=== PATIENT | female | born 1925 | race Caucasian/White ===

== ENCOUNTER → 2016-06-23 | Outpatient (CLI) | payer OTHER, BC ==
[~2016-06-23] MED LIST: AMLO2.5T PO; ASPI81TA21 PO; CALCTAB7 PO; CHOL100027 PO; FLAX SEED; GABA1CAP5 PO; HYDR12.56 PO; LOSA1TAB38 PO; MEGA RED; MULT-190 PO; MULTTAB58 PO; NRN/300 PO; NTRGSL/4 UT; PRLSR20 PO; SERT50TA PO; SIMV20TA2 PO; SYN50 PO; ZNTT/150 PO
== END | disposition home or self-care (01) ==
LOC: C.LABSPEC 16:45
PROVIDERS: ATTEND Obstetrics & Gynecology
DX: N81.10 Cystocele, unspecified (principal)

== ENCOUNTER 2016-10-16 12:53 | Emergency (ER) | payer OTHER, BC ==
[~2016-10-16] VITALS: Ht 157.5 cm; Wt 69.8 kg
[~2016-10-16 12:53] MED LIST changes: -AMLO2.5T PO; -GABA1CAP5 PO; -HYDR12.56 PO; -NTRGSL/4 UT; -PRLSR20 PO; -SIMV20TA2 PO; -SYN50 PO; -ZNTT/150 PO
[2016-10-16 13:03] VITALS: TEMP 36.5; Ht 157.5 cm; Wt 69.8 kg
[2016-10-16 14:13] LABS: BASO % 0.2 %; BASO ABS # 0.02 K/uL (0-0.2); COMPLETE YES; EOS % 1.6 %; IG% 0.1 %; LYMPH % 21.7 %; LYMPH ABS # 1.75 K/uL (1.2-3.4); MEAN CELL VOLUME 97.6 fL (80-100); MEAN CORPUSCULAR HEMOGLOBIN 32.2 pg (25-34); MEAN PLATELET VOLUME 10.6 fL (7.4-10.4); MONO % 9.4 %; PLATELET COUNT 191 K/uL (130-400); WHITE BLOOD COUNT 8.08 K/uL (4.8-10.8)
[2016-10-16 14:22] LABS: BUN/CREATININE RATIO 23.6 (10-20); CALCIUM 8.7 mg/dl (8.5-10.1); CREATININE 0.86 mg/dl (0.60-1.20); POTASSIUM 4.4 mmol/L (3.5-5.1)
[2016-10-16 14:25] LABS: ALB/GLOB RATIO 0.9 (0.9-2)
[2016-10-16 14:44] VITALS: O2SAT 95
[2016-10-16] MEDS ORDERED: HYDR12.56 PO (15:00)
[2016-10-16] MEDS ORDERED: ZNTT/150 PO (15:00)
[2016-10-16] MEDS ORDERED: SYN50 PO (15:00)
[2016-10-16] MEDS ORDERED: NTRGSL/4 UT (15:00)
[2016-10-16] MEDS ORDERED: SIMV20TA2 PO (15:00)
[2016-10-16] MEDS ORDERED: SERT50TA PO (15:00)
[2016-10-16] MEDS ORDERED: AMLO2.5T PO (15:00)
[2016-10-16] MEDS ORDERED: GABA1CAP5 PO (15:00)
[2016-10-16] MEDS ORDERED: PRLSR20 PO (15:00)
[2016-10-16] MEDS ORDERED: SODIUM CHLORIDE 0.9% 1000ML 1,000 ML IV STA (15:17)
[2016-10-16] MEDS ORDERED: SODIUM CHLORIDE 0.9% 250ML 250 ML IV STA (15:17)
--- NOTE | 2016-10-16 15:51 | DIAGNOSTIC IMAGING REPORT ---
HEAD CT NONCONTRAST CT DOSE: 537.48 mGy.cm HISTORY: Mental status change AMS TECHNIQUE: Multiaxial CT images of the head were performed without the use of intravenous contrast. Comparison: 05/24/2009 Findings: The paranasal sinuses and mastoid air cells are clear. Mild chronic small vessel change of the periventricular deep white matter regions. Several punctate old periventricular infarct. No acute intracranial hemorrhage. No midline shift. Impression: No acute intracranial abnormality. Chronic and age-related change. Electronically signed by: Cedric Murillo M.D. 10/16/2016 3:50 PM Dictated Date/Time: 10/16/2016 3:45 PM
--- NOTE | 2016-10-16 15:56 | EMERGENCY ROOM VISIT NOTE ---
History Report prepared by Abiel: Radha Martínez Under the Supervision of: Dr. Lacey Hooper M.D. First contact with patient: 15:07 Chief Complaint: DEHYDRATION Stated Complaint: DIZZY, LIGHTHEADED, CONFUSED, DIARRHEA Nursing Triage Summary: pt reports diarrhea for the past few weeks causes pain in her stomach states yesterday she got up and was dizzy pt also reports she was cleaning a house with her daughter concerned about any infection she may have acquired daughter states there is a family history of C Diff History of Present Illness The patient is an 89 year old female who presents to the Emergency Room with complaints of intermittent diarrhea over the last three months. The patient reports that she has not had any hematochezia or melena. She states that her diarrhea subsides for a short amount of time, but always returns. The patient states that she felt fine last evening, but states that this morning she began experiencing diarrhea again. The patient states that she additionally notes abdominal pain. The patient reports a history of diverticulitis and stomach ulcers, and states that she is on a baby aspirin. The patient's daughter reports that the patient has been cleaning out her sister's house recently, which had multiple bacterial build ups. She states that the patient has been confused and additionally voices concern of dehydration. Source of History: patient Onset: last three months Position: other (global) Quality: other (diarrhea) Timing: intermittent Associated Symptoms: + abdominal pain, No melena, No hematochezia Note: Associated Symptoms: possible dehydration, confusion Review of Systems See HPI for pertinent positives & negatives. A total of 10 systems reviewed and were otherwise negative. Past Medical & Surgical Medical Problems: (1) Allergy to penicillin (2) Benign hypertension (3) CVA (4) Diabetes (5) Gastric ulcers (6) Pneumonia Family History Cancer Diabetes mellitus Heart disease Social History Smoking Status: Never Smoker Drug Use: none Housing Status: lives with family Occupation Status: retired Current/Historical Medications Scheduled Amlodipine (Norvasc), 2.5 MG PO DAILY Aspirin Enteric Coated (Ecotrin Or Generic), 81 MG PO DAILY Calcium Carbonate-Vitamin D W/ (Caltrate 600 Plus), 1 TAB PO DAILY Cholecalciferol (Vitamin D 1000 Unit), 1,000 INTER.UNIT PO DAILY Gabapentin (Neurontin), 400 MG PO HS Hydrochlorothiazide (Hctz), 12.5 MG PO 2XWK Levothyroxine Sodium (Synthroid), 50 MCG PO QAM Multiple Vitamin (Multivitamin), 1 TAB PO DAILY Nitroglycerin (Nitrostat), 0.4 MG UT PRN Omeprazole (Prilosec), 20 MG PO HS Ranitidine (Zantac), 150 MG PO DAILY Sertraline (Zoloft), 50 MG PO DAILY Simvastatin (Zocor), 20 MG PO QPM Miscellaneous Medications [Flax Seed], 1 Allergies Coded Allergies: Penicillins (Verified Allergy, Severe, ANAPHYLAXIS, 07/13/12) Physical Exam Vital Signs Date Time Temp Pulse Resp B/P (MAP) Pulse Ox O2 Delivery O2 Flow Rate FiO2 10/16/16 20:48 69 20 143/97 94 10/16/16 20:03 66 24 179/84 96 Room Air 10/16/16 19:07 58 10/16/16 18:48 84 16 156/61 94 10/16/16 16:24 66 18 177/92 95 Room Air 10/16/16 16:10 59 20 156/93 94 Room Air 10/16/16 14:57 58 10/16/16 14:45 56 16 142/85 96 Room Air 10/16/16 14:44 95 Room Air 10/16/16 13:03 36.5 65 18 137/86 95 Room Air Physical Exam Vital signs reviewed. General: Elderly. Well-appearing female, in no significant distress. HEENT: No scleral icterus, PERRLA, neck supple. Atraumatic. Cardiovascular: Regular rate and rhythm, no extra sounds. Pulmonary: Clear to auscultation bilaterally, normal work of breathing. Abdomen: Soft, nontender, nondistended, positive bowel sounds. Musculoskeletal: Atraumatic, no peripheral edema. Neurologic: Patient awake alert and oriented x 3, full strength in all 4 extremities. Cranial nerves 2 through 12 grossly intact. Skin: Warm, dry, no rash Medical Decision & Procedures ER Provider Diagnostic Interpretation: CT results as stated below per my review and radiologist interpretation: HEAD CT NONCONTRAST CT DOSE: 537.48 mGy.cm HISTORY: Mental status change AMS TECHNIQUE: Multiaxial CT images of the head were performed without the use of intravenous contrast. Comparison: 05/24/2009 Findings: The paranasal sinuses and mastoid air cells are clear. Mild chronic small vessel change of the periventricular deep white matter regions. Several punctate old periventricular infarct. No acute intracranial hemorrhage. No midline shift. Impression: No acute intracranial abnormality. Chronic and age-related change. Electronically signed by: Cedric Murillo M.D. 10/16/2016 3:50 PM Dictated Date/Time: 10/16/2016 3:45 PM Laboratory Results 10/16/16 13:25 Red Blood Count 4.10, Mean Corpuscular Volume 97.6, Mean Corpuscular Hemoglobin 32.2, Mean Corpuscular Hemoglobin Concent 33.0, Mean Platelet Volume 10.6, Neutrophils (%) (Auto) 67.0, Lymphocytes (%) (Auto) 21.7, Monocytes (%) (Auto) 9.4, Eosinophils (%) (Auto) 1.6, Basophils (%) (Auto) 0.2, Neutrophils # (Auto) 5.41, Lymphocytes # (Auto) 1.75, Monocytes # (Auto) 0.76, Eosinophils # (Auto) 0.13, Basophils # (Auto) 0.02 10/16/16 13:25 Test 10/16/16 13:25 10/16/16 16:20 10/16/16 18:45 White Blood Count 8.08 K/uL (4.8-10.8) Red Blood Count 4.10 M/uL (4.2-5.4) Hemoglobin 13.2 g/dL (12.0-16.0) Hematocrit 40.0 % (37-47) Mean Corpuscular Volume 97.6 fL (80-100) Mean Corpuscular Hemoglobin 32.2 pg (25-34) Mean Corpuscular Hemoglobin Concent 33.0 g/dl (32-36) Platelet Count 191 K/uL (130-400) Mean Platelet Volume 10.6 fL (7.4-10.4) Neutrophils (%) (Auto) 67.0 % Lymphocytes (%) (Auto) 21.7 % Monocytes (%) (Auto) 9.4 % Eosinophils (%) (Auto) 1.6 % Basophils (%) (Auto) 0.2 % Neutrophils # (Auto) 5.41 K/uL (1.4-6.5) Lymphocytes # (Auto) 1.75 K/uL (1.2-3.4) Monocytes # (Auto) 0.76 K/uL (0.11-0.59) Eosinophils # (Auto) 0.13 K/uL (0-0.5) Basophils # (Auto) 0.02 K/uL (0-0.2) RDW Standard Deviation 47.4 fL (36.4-46.3) RDW Coefficient of Variation 13.3 % (11.5-14.5) Immature Granulocyte % (Auto) 0.1 % Immature Granulocyte # (Auto) 0.01 K/uL (0.00-0.02) Anion Gap 8.0 mmol/L (3-11) Est Creatinine Clear Calc Drug Dose 40.6 ml/min Estimated GFR () 69.4 Estimated GFR (Non- 59.9 BUN/Creatinine Ratio 23.6 (10-20) Calcium Level 8.7 mg/dl (8.5-10.1) Total Bilirubin 1.0 mg/dl (0.2-1) Aspartate Amino Transf (AST/SGOT) 14 U/L (15-37) Alanine Aminotransferase (ALT/SGPT) 19 U/L (12-78) Alkaline Phosphatase 74 U/L (45-117) Total Protein 6.8 gm/dl (6.4-8.2) Albumin 3.3 gm/dl (3.4-5.0) Globulin 3.5 gm/dl (2.5-4.0) Albumin/Globulin Ratio 0.9 (0.9-2) Stool Occult Blood NEGATIVE (NEGATIVE) Urine Color YELLOW Urine Appearance CLEAR (CLEAR) Urine pH 7.5 (4.5-7.5) Urine Specific [place] 1.009 (1.000-1.030) Urine Protein NEG (NEG) Urine Glucose (UA) NEG (NEG) Urine Ketones NEG (NEG) Urine Occult Blood NEG (NEG) Urine Nitrite NEG (NEG) Urine Bilirubin NEG (NEG) Urine Urobilinogen NEG (NEG) Urine Leukocyte Esterase MODERATE (NEG) Urine WBC (Auto) 5-10 /hpf (0-5) Urine RBC (Auto) 0-4 /hpf (0-4) Urine Hyaline Casts (Auto) 1-5 /lpf (0-5) Urine Epithelial Cells (Auto) >30 /lpf (0-5) Urine Bacteria (Auto) NEG (NEG) Urine Renal Epithelial Cells 0-5 /lpf (0-5) Date/Time Source Procedure Growth Status 10/16/16 16:20 Stool C.difficile Toxin B Gene (PCR) - Final No C. difficile toxin B gene detected Complete 10/16/16 17:30 Urine , Clean Catch Urine Culture - Final MORE THAN THREE TYPES OF ORGANISMS MI... Complete Laboratory results per my review. Medications Administered Medications (Trade) Dose Ordered Sig/[place] Route Start Time Stop Time Status Last Admin Dose Admin Sodium Chloride 250 ml @ 999 mls/hr Q16M STAT IV 10/16/16 15:17 10/16/16 15:32 DC 10/16/16 15:17 999 MLS/HR Sodium Chloride 1,000 ml @ 125 mls/hr Q8H STAT IV 10/16/16 15:17 10/16/16 23:00 DC 10/16/16 15:54 125 MLS/HR ECG Indication: bradycardia Rate (beats per minute): 59 Rhythm: sinus bradycardia Findings: Q waves (Anterior), other (T wave flattening diffusely) ED Course 1516: Past medical records reviewed. The patient was evaluated in room B4B. A complete history and physical examination was performed. 1517: Ordered Sodium Chloride 1000 ml @ 125 mls/hr IV, Sodium Chloride 250 ml @ 999 mls/hr IV. 1837: I reevaluated the patient and she is resting comfortably. We are awaiting her urinalysis. 2005: I reevaluated the patient and she is doing well. I discussed the exam findings with her and I discussed the treatment plan. She verbalized complete understanding and agreement. She is ready to go home. Medical Decision The patient is an 89 year old female who presents to the ED with complaints of diarrhea. Differentials include dehydration, electrolyte abnormality, intracranial hemorrhage, intracranial mass, stroke, UTI, GI bleed. Blood Pressure Screening: Patient was found to have an elevated blood pressure and was referred to their primary doctor for recheck and further treatment. Medication Reconciliation: I attest that I have personally reviewed the patient' s current medication list. This patient was evaluated and appeared to be in no significant distress. IV access was obtained and laboratory work was drawn. The patient was placed on the director of cardiac rehabilitation and found to be in a sinus bradycardia. The patient was hydrated with normal saline solution over several hours. A stool sample was obtained and is negative for C. difficile, cultures are pending. The patient had significant improvement in her symptoms with IV hydration. Urinalysis was obtained and was grossly contaminated. A catheterized specimen was obtained and is not likely infected. The patient will not be treated for UTI at this time. She was encouraged to follow-up with her primary care physician this week. She was discharged to the care of her friend at the bedside. She will return to the ER for worsening of symptoms or any medical concerns. Impression Primary Impression: Diarrhea Scribe Attestation The scribe's documentation has been prepared under my direction and personally reviewed by me in its entirety. I confirm that the note above accurately reflects all work, treatment, procedures, and medical decision making performed by me. Departure Information Dispostion Home / Self-Care Referrals Mitchell Solis M.D.([facility]) (PCP) Forms HOME CARE DOCUMENTATION FORM, IMPORTANT VISIT INFORMATION, WORK / SCHOOL INSTRUCTIONS Patient Instructions Diarrhea, My [facility] Additional Instructions Diagnosis: Diarrhea, dehydration Please drink plenty of clear fluids. Maintain a bland diet, minimizing dairy products. BRAT diet. Bananas, rice, applesauce and toast. Follow-up with your physician for reevaluation this week. Return to the ER for worsening of symptoms or any medical concerns.
[2016-10-16 18:01] LABS: MANUAL MICROSCOPIC REQUIRED? NO; REVIEW REQ? NO; URINE APPEARANCE CLOUDY (CLEAR); URINE BILIRUBIN NEG (NEG); URINE COLOR YELLOW; URINE EPITHELIAL CELL AUTO >30 /lpf (0-5); URINE NITRITE NEG (NEG); URINE PH 6.5 (4.5-7.5); URINE SPECIFIC GRAVITY 1.011 (1.000-1.030); UROBILINOGEN NEG (NEG); ZZUR CULT IF INDIC CLEAN CATCH YES
[2016-10-16 18:57] LABS: URINE APPEARANCE CLEAR (CLEAR); URINE BILIRUBIN NEG (NEG); URINE COLOR YELLOW; URINE EPITHELIAL CELL AUTO >30 /lpf (0-5); URINE NITRITE NEG (NEG); URINE PH 7.5 (4.5-7.5); URINE SPECIFIC GRAVITY 1.009 (1.000-1.030); UROBILINOGEN NEG (NEG); ZZURINE CULT IF INDIC CATH NO
[2016-10-16 18:59] LABS: MANUAL MICROSCOPIC REQUIRED? NO; REVIEW REQ? YES
[2016-10-16 20:48] VITALS: BP 143/97; PULSE 69; O2SAT 94
== END 2016-10-16 20:48 | disposition home or self-care (01) ==
LOC: C.EDB 12:54
DX: R19.7 Diarrhea, unspecified (principal); E86.0 Dehydration; R42 Dizziness and giddiness; R10.9 Unspecified abdominal pain; Z79.899 Other long term (current) drug therapy